=== PATIENT | male | born 1955 | race Caucasian/White ===

== ENCOUNTER → 2018-08-28 17:26 | Outpatient (CLI) | payer MEDICAID, SELFPAY ==
[2018-08-28 18:27] LABS: Amphetamine/Metha Screen,Urine Negative ng/mL (<1000); Barbiturates Screen,Urine Negative ng/mL (<200); Benzodiazepines Screen,Urine Negative ng/mL (<200); Cannabinoid Screen,Urine Negative ng/mL (<50); Cocaine Screen,Urine Negative ng/mL (<300); Methadone Screen,Urine Negative ng/mL (<300); Opiate Screen,Urine Negative ng/mL (<300); Phencyclidine Screen,Urine Negative ng/mL (<25)
== END ==
PROVIDERS: Visit Provider Emergency Medicine
DX: Z79.899 Other long term (current) drug therapy (principal)
CPT/HCPCS: 80305

== ENCOUNTER → 2018-10-02 14:22 | Outpatient (CLI) | payer MEDICAID, SELFPAY ==
[2018-10-02 15:00] LABS: Basophils % 0.6 % (0.1-2.0); Eosinophils # 0.1 K/mm3 (0.0-0.4); Eosinophils % 2.7 % (0.1-12.0); Hematocrit 48.3 % (42.0-52.0); Lymphocytes # 1.4 K/mm3 (0.7-4.5); Lymphocytes % 28.3 % (10-50); Mean Corpuscular HGB Conc 33.2 g/dL (31.8-35.4); Mean Corpuscular Hemoglobin 31.4 pg (27.0-31.2); Mean Corpuscular Volume 94.7 fl (80-94); Mean Platelet Volume 8.4 fl (7.4-10.4); Monocytes # 0.4 K/mm3 (0.1-1.0); Monocytes % 7.2 % (1.7-9.3); Neutrophils # 3.1 K/mm3 (1.8-7.8); Neutrophils % 61.2 % (37.0-80.0); Platelet Count 274 K/mm3 (142-424); Red Cell Distribution Width 13.3 % (11.5-17.5)
[2018-10-02 16:21] LABS: Alanine Aminotransferase 52 U/L (12-78); Albumin Level 3.9 gm/dL (3.4-5.0); Albumin/Globulin Ratio 1.2 (1.1-1.8); Alkaline Phosphatase 89 U/L (46-116); Anion Gap 11.6 mEq/L (5-15); Aspartate Amino Transferase 16 U/L (15-37); Bilirubin,Total 0.4 mg/dL (0.2-1.0); Blood Urea Nitrogen 14 mg/dL (7-18); Calcium 9.7 mg/dL (8.5-10.1); Carbon Dioxide 31 mmol/L (21.0-32.0); Chloride 102 mmol/L (98-107); Chol/HDL Ratio 5.3 (1-3.5); Cholesterol 185 mg/dL (140-200); Estimated Glomerular Filt Rate 68 ml/min (>60); Free T4 (Free Thyroxine) 0.86 ng/dl (0.76-1.46); GFR (African American) 82 ML/MIN (>60); Globulin 3.2 gm/dl (1.3-3.2); Glucose 100 mg/dL (74-106); HDL Cholesterol 35 mg/dL (27-67); LDL Cholesterol 124 mg/dL (0-130); Potassium 4.6 mmoL/L (3.5-5.1); Sodium 140 mmol/L (136-145); Thyroid Stimulating Hormone 1.04 uIU/ml (0.358-3.740); Total Protein,Serum 7.1 gm/dL (6.4-8.2); Triglycerides 128 mg/dL (30-200); VLDL Cholesterol 26 mg/dL (0-40)
== END ==
PROVIDERS: Visit Provider Emergency Medicine
DX: R53.83 Other fatigue (principal); M79.18 Myalgia, other site; M54.16 Radiculopathy, lumbar region; E66.9 Obesity, unspecified; Z72.0 Tobacco use; E55.9 Vitamin D deficiency, unspecified
CPT/HCPCS: 80053; 80061; 82652; 84439; 84443; 85025

== ENCOUNTER → 2019-01-04 14:02 | Outpatient (CLI) | payer MEDICAID, SELFPAY ==
[2019-01-04 15:23] LABS: Amphetamine/Metha Screen,Urine Negative ng/mL (<1000); Barbiturates Screen,Urine Negative ng/mL (<200); Benzodiazepines Screen,Urine Negative ng/mL (<200); Cannabinoid Screen,Urine Negative ng/mL (<50); Cocaine Screen,Urine Negative ng/mL (<300); Methadone Screen,Urine Negative ng/mL (<300); Opiate Screen,Urine Positive ng/mL (<300); Phencyclidine Screen,Urine Negative ng/mL (<25)
== END ==
PROVIDERS: Visit Provider Emergency Medicine
DX: M54.16 Radiculopathy, lumbar region (principal)
CPT/HCPCS: 80305

== ENCOUNTER → 2019-03-04 14:51 | Outpatient (CLI) | payer MEDICAID, SELFPAY ==
[2019-03-04 16:57] LABS: Amphetamine/Metha Screen,Urine Negative ng/mL (<1000); Barbiturates Screen,Urine Negative ng/mL (<200); Benzodiazepines Screen,Urine Negative ng/mL (<200); Cannabinoid Screen,Urine Negative ng/mL (<50); Cocaine Screen,Urine Negative ng/mL (<300); Methadone Screen,Urine Negative ng/mL (<300); Opiate Screen,Urine Positive ng/mL (<300); Phencyclidine Screen,Urine Negative ng/mL (<25)
== END ==
PROVIDERS: Visit Provider Emergency Medicine
DX: M54.16 Radiculopathy, lumbar region (principal)
CPT/HCPCS: 80305

== ENCOUNTER → 2019-04-03 13:45 | Outpatient (CLI) | payer MEDICAID, SELFPAY ==
[2019-04-03 21:15] LABS: Amphetamine/Metha Screen,Urine Negative ng/mL (<1000); Barbiturates Screen,Urine Negative ng/mL (<200); Benzodiazepines Screen,Urine Negative ng/mL (<200); Cannabinoid Screen,Urine Negative ng/mL (<50); Cocaine Screen,Urine Negative ng/mL (<300); Methadone Screen,Urine Negative ng/mL (<300); Opiate Screen,Urine Positive ng/mL (<300); Phencyclidine Screen,Urine Negative ng/mL (<25)
== END ==
PROVIDERS: Visit Provider Emergency Medicine
DX: Z79.899 Other long term (current) drug therapy (principal)
CPT/HCPCS: 80305

== ENCOUNTER → 2019-04-29 11:13 | Outpatient (POV) | payer MEDICAID, SELFPAY ==
[2019-04-29 11:26] VITALS: BP 156/90; PULSE 75; RESP 18; O2SAT 99; BMI 32.0
--- NOTE | 2019-04-29 12:00 | HMH.PMCON ---
Assessment and Plan (1) Back pain Current visit: Yes Status: Chronic Qualifiers: Back pain location: low back pain Category: Medical Code(s): M54.9 - Dorsalgia, unspecified - Assessment and plan all Dx Assessment and Plan for all problems:: Patient and I discussed options I do believe an MRI would be beneficial to help determine the pathology of his pain and the intermittent nature of it. Patient is unsure what he would like to do. Patient is asking for Mesa today. I discussed with him that we would not be giving him any Mesa or any narcotics. We will also try to get the notes from his previous pain management clinic. I will follow-up with him after his MRI reassess him at that time. Dr. Null has reviewed this note and agrees with this plan of care. This note was dictated using voice recognition software and may contain errors or omissions HPI - Data of Consult Consult date: 04/29/19 Requesting Physician: Ya Richardson APRN Primary Care Provider: Sergei Olivarez MD - Consult Narrative Reason for consult: Back pain History of present illness: Mr. Wheatley is a 63 year old male who presents today for consultation in regards to his low back and leg pain. Patient states it is intermittent in nature. Patient states that when it hits he is unable to walk. Patient does not have any updated imaging however he does have an MRI scheduled for tomorrow. He is receiving Mesa and gabapentin from his primary care physician. He states that this is beneficial. Patient has been going to pain clinic in [place] where he received 2 injections in his neck which he states he does not understand why they were given to him in that location. Patient states that he was billed $50,000 per injection. Patient states that his insurance denied those getting paid and was unable to continue to go to that clinic. Patient then states he switched his insurance and was still unable to go to that clinic. Patient rates his pain today a 7 out of 10. 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 Patient states that he is unsure that he is interested in any injective therapy. I discussed with him potentially an epidural would be beneficial however it will help to have an MRI with updated imaging. Patient states he tried physical therapy and chiropractic therapy with no relief. CC: Ya Richardson APRN [facility] History I have reviewed the patient's past medical history: Yes Medical History: Reports:: Gastroesophageal Reflux Disease(GERD) *Have you ever received a pneumonia vaccine?: Yes *Have you received a flu vaccine this season?: Yes Other Medical History: Reports: Arthritis, Other Laterality Cases: Bilateral: Arthroscopy Knee Other Surgeries: Yes: Other Amputation: No Fractures: Yes - *Social History Smoking Status: Current every day smoker Tobacco Type: cigarettes # Packs/Day (cigarettes): 1 Alcohol Intake: never Substance Use Type: denies use *Occupational Status:: other Housing: apartment Household Members: other *Travel in the last 8 weeks: None Family Hx:: Heart Attack, Stroke Review of Systems - Review of Systems ROS General: no recent weight change, no fever, no sleep disturbances Respiratory: no cough, no shortness of air, no recurring pulmonary infections Cardiovascular/Peripheral Vascular: No chest pain, No palpitations, no edema, no shortness of breath. Gastrointestinal: no new onset incontinence, normal bowel movements reported Genitourinary: no new onset incontinence Musculoskeletal: Back pain, leg pain Psychiatric: normal mood/ affect Neurological: [denies new onset weakness in extremities], [denies new onset balance issues] Meds Home Medications Medication Instructions Recorded Confirmed Type cholecalciferol (vitamin D3) 25 1,000 unit PO DAILY #90 cap 10/05/18 04/03/19 Rx mcg (1,000 unit) capsule ergocalciferol (vitamin D2) 1,250 50,000 unit PO QWEEK #14 cap 10/05/18 04/03/19 Rx mcg (50,
== END ==
PROVIDERS: PCP Emergency Medicine; Visit Provider Clinical Nurse Specialist Family Health
DX: M54.9 Dorsalgia, unspecified (principal)
CPT/HCPCS: 99202

== ENCOUNTER 2019-10-03 15:14 | Emergency (ER) | payer MEDICAID, SELFPAY ==
[2019-10-03 15:20] VITALS: BP 127/85; PULSE 87; RESP 18; TEMP 36.9; O2SAT 95; BMI 31.5
[2019-10-03 15:59] VITALS: BP 127/85; PULSE 87; RESP 18; TEMP 36.9; O2SAT 95; BMI 31.4
--- NOTE | 2019-10-03 16:01 | HMH.EDUTC ---
[facility] [place] Disposition Clinical Impression: Low back strain Qualifiers: Encounter type: initial encounter Qualified Code(s): S39.012A - Strain of muscle, fascia and tendon of lower back, initial encounter Disposition: Home, Self-Care Condition on Discharge: Good Instructions: Low Back Pain, DI for Low Back Pain Additional Instructions: Drink plenty of fluids. Take tylenol or ibuprofen for pain or fever. Take the medications as directed. Follow up with your regular doctor. GO TO THE ER FOR ANY WORSENING SYMPTOMS Don't start the oral steroids until tomorrow, since you had the shot here today. The muscle relaxers (robaxin) will make you drowsy, so don't drive or operate heavy machinery after taking them. Go home and rest. It would be best if you rested tomorrow too. No heavy lifting. No twisting. Take the oral medications as directed. The muscle relaxer (robaxin) will make you drowsy, so don't drive or operate heavy machinery after taking it. Don't start the oral steroids (medrol dose pack) until tomorrow, since you had the shots in here today. Follow up with your regular doctor. GO TO THE ER FOR ANY WORSENING SYMPTOMS OR CONCERN, ESPECIALLY BOWEL OR BLADDER ISSUES, SADDLE AREA NUMBNESS, FEVER, ETC Prescriptions: methylPREDNISolone [Medrol] 4 mg PO DIRECTED 6 Days #21 tab.ds.pk Transmission Status: Received by [facility] Methocarbamol [Robaxin 500mg Tab] 500 mg PO BIDP PRN #30 tab PRN Reason: Muscle Spasm Transmission Status: Received by [facility] Referrals: PCP,No [Primary Care Provider] - Time of Disposition: 16:25 Medical Decision Making - Medical Records Medical records reviewed: No: I reviewed the patient's medical records. - Kirt Inquiry Pt receiving controlled substance: No Vital Signs: 10/03/19 15:20 10/03/19 15:59 10/03/19 16:15 Temperature 98.5 F 98.5 F 98.5 F Temperature Source Oral Oral Pulse Rate 87 Pulse Rate [Radial] 87 87 Respiratory Rate 18 18 18 Blood Pressure 127/85 Blood Pressure [Right Arm] 127/85 127/85 Blood Pressure Mean [Right Arm] 99 99 Blood Pressure Source [Right Arm] Automatic Cuff Blood Pressure Position [Right Arm] Sitting 02 Sat by Pulse Oximetry 95 95 Oxygen Delivery Method Room Air Room Air Orders (Tests/Meds): ED MEDICATIONS Discontinued Medications Generic Name Dose Route Start Last Admin Trade Name Kathleen PRN Reason Stop Dose Admin Methylprednisolone Sodium Succinate 125 mg 10/03/19 16:03 10/03/19 16:14 Solu-Medrol 125mg/2ml Vial IM 10/03/19 16:04 125 mg ONCE ONE Administration [facility] [place] HPI - General Stated complaint: Back pain Time Seen by Provider: 10/03/19 16:01 Mode of Arrival: Ambulatory Limitations: No Limitations Description of Symptoms (Recalled from Triage Doc. by RN): Complaint of back pain after lifting some boxes. - History of Present Illness Provider Complaint: He c/o low back pain for the past 4 days after lifting some heavy stuff. - Related Data Previous Rx's Medication Instructions Recorded cholecalciferol (vitamin D3) 25 1,000 unit PO DAILY #90 cap 10/05/18 mcg (1,000 unit) capsule ergocalciferol (vitamin D2) 1,250 50,000 unit PO QWEEK #14 cap 10/05/18 mcg (50,000 unit) capsule omeprazole 40 mg capsule,delayed 40 mg PO DAILY #90 cap 01/04/19 release gabapentin 800 mg tablet 800 mg PO TID #90 tab 04/04/19 loratadine 10 mg tablet 10 mg PO DAILY #90 tab 04/04/19 tizanidine 4 mg capsule 4 mg PO TID #270 cap 04/04/19 hydrocodone 5 mg-acetaminophen 325 1 tab PO BID PRN #60 tab 04/08/19 mg tablet Methocarbamol [Robaxin 500mg Tab] 500 mg PO BIDP PRN #30 tab 10/03/19 methylPREDNISolone [Medrol] 4 mg PO DIRECTED 6 Days #21 10/03/19 tab.ds.pk Allergies Allergy/AdvReac Type Severity Reaction Status Date / Time acyclovir Allergy Severe Swelling Verified 04/03/19 09:35 of the Eye ketorolac [From Toradol] Allergy Severe Anaphylaxi
[2019-10-03 16:15] VITALS: BP 127/85; PULSE 87; RESP 18; TEMP 36.9; O2SAT 95
== END 2019-10-03 16:39 | disposition home or self-care (01) ==
PROVIDERS: Emergency Provider Nurse Practitioner Family
DX: S39.012A Strain of muscle, fascia and tendon of lower back, initial encounter (principal); X50.0XXA Overexertion from strenuous movement or load, initial encounter; Y92.019 Unspecified place in single-family (private) house as the place of occurrence of the external cause; K21.9 Gastro-esophageal reflux disease without esophagitis; F17.210 Nicotine dependence, cigarettes, uncomplicated
CPT/HCPCS: 96372; 99201

== ENCOUNTER → 2022-11-16 01:10 | Outpatient (CLI) | payer MEDICARE, MEDICAID, SELFPAY ==
[2022-11-16 19:27] LABS: Basophils % 0.1 % (0.1-2.0); Eosinophils % 0.1 % (0.1-12.0); Hematocrit 53.5 % (42.0-52.0); Lymphocytes # 0.5 K/mm3 (0.7-4.5); Lymphocytes % 4.6 % (10-50); Mean Corpuscular HGB Conc 31.7 g/dL (31.8-35.4); Mean Corpuscular Hemoglobin 30.4 pg (27.0-31.2); Mean Corpuscular Volume 95.9 fl (80-94); Mean Platelet Volume 10.9 fl (7.4-10.4); Monocytes # 0.4 K/mm3 (0.1-1.0); Monocytes % 3.5 % (1.7-9.3); Neutrophils # 10.2 K/mm3 (1.8-7.8); Neutrophils % 91.7 % (37.0-80.0); Platelet Count 230 K/mm3 (142-424); Red Blood Count 5.58 M/mm3 (4.60-6.20); Red Cell Distribution Width 13.6 % (11.5-17.5); White Blood Count 11.1 K/mm3 (4.8-10.8)
[2022-11-16 19:30] LABS: MANUAL DIFFERENTIAL MANUAL DIFFERENTIAL (MANUAL DIFF)
[2022-11-16 20:46] LABS: Alanine Aminotransferase 38 U/L (12-78); Albumin Level 4.5 g/dl (3.5-5.0); Albumin/Globulin Ratio 1.5 (1.1-1.8); Alkaline Phosphatase 66 U/L (38-126); Anion Gap 16.7 mEq/L (5-15); Aspartate Amino Transferase 28 U/L (17-59); Bilirubin,Total 0.9 mg/dl (0.2-1.3); Blood Urea Nitrogen 17 mg/dl (9-20); Calcium 9.8 mg/dl (8.4-10.2); Carbon Dioxide 21 mmol/L (22.0-30.0); Chloride 105 mmol/L (98-107); Estimated Glomerular Filt Rate 75 ml/min (>60); GFR (African American) 90 ML/MIN (>60); Glucose 165 mg/dl (74-100); Potassium 4.7 mmoL/L (3.5-5.1); Sodium 138 mmol/L (136-145); Total Protein,Serum 7.5 g/dl (6.3-8.2)
[2022-11-16 21:02] LABS: Lymphocytes % 6 % (10-50); Neutrophils % 94 % (42-76); Total Cells Counted 100
[2022-11-16 21:03] LABS: Platelet Estimate Normal; RBC Morphology Normal
[2022-11-16 21:14] LABS: Amphetamine/Metha Screen,Urine Negative ng/ml (<1000)
[2022-11-16 21:15] LABS: Barbiturates Screen,Urine Negative ng/ml (<200)
[2022-11-16 21:16] LABS: Benzodiazepines Screen,Urine Negative ng/ml (<200); Cannabinoid Screen,Urine Negative ng/ml (<50); Prostate Specific Ag Screen 2.2 ng/ml (0.0-4.0)
[2022-11-16 21:19] LABS: Cocaine Screen,Urine Negative ng/ml (<300); Methadone Screen,Urine Negative ng/ml (<300)
[2022-11-16 21:20] LABS: Opiate Screen,Urine Negative ng/ml (<300)
[2022-11-16 21:21] LABS: Phencyclidine Screen,Urine Negative ng/ml (<25)
== END ==
PROVIDERS: PCP Internal Medicine; Visit Provider Internal Medicine
DX: Z00.00 Encounter for general adult medical examination without abnormal findings (principal); Z79.899 Other long term (current) drug therapy; Z12.5 Encounter for screening for malignant neoplasm of prostate
CPT/HCPCS: 80053; 80305; 85007; 85025; G0103

== ENCOUNTER → 2022-12-15 14:04 | Outpatient (CLI) | payer MEDICARE, MEDICAID, SELFPAY ==
[2022-12-15 18:39] LABS: Cholesterol 203 mg/dl (140-200); HDL Cholesterol 34 mg/dl (40-60); Triglycerides 165 mg/dl (30-150); VLDL Cholesterol 33 mg/dL (0-40)
[2022-12-15 18:48] LABS: Amphetamine/Metha Screen,Urine Negative ng/ml (<1000)
[2022-12-15 18:49] LABS: Barbiturates Screen,Urine Negative ng/ml (<200); Benzodiazepines Screen,Urine Negative ng/ml (<200)
[2022-12-15 18:50] LABS: Cannabinoid Screen,Urine Negative ng/ml (<50); Direct LDL Cholesterol 137.05 mg/dL (100-129)
[2022-12-15 18:55] LABS: Methadone Screen,Urine Negative ng/ml (<300)
[2022-12-15 18:56] LABS: Cocaine Screen,Urine Negative ng/ml (<300)
[2022-12-15 18:57] LABS: Opiate Screen,Urine Positive ng/ml (<300); Phencyclidine Screen,Urine Negative ng/ml (<25)
[2022-12-15 19:02] LABS: Hemoglobin A1C 5.6 % (4.0-6.0)
== END ==
PROVIDERS: PCP Internal Medicine; Visit Provider Internal Medicine
DX: E66.9 Obesity, unspecified (principal); R73.9 Hyperglycemia, unspecified; Z79.899 Other long term (current) drug therapy; Z68.30 Body mass index [BMI] 30.0-30.9, adult
CPT/HCPCS: 80061; 80305; 83036

== ENCOUNTER → 2022-12-15 14:04 | Outpatient (CLI) | payer MEDICARE, MEDICAID, SELFPAY | PROVIDERS: PCP Internal Medicine; Visit Provider Internal Medicine | DX: Z79.899 Other long term (current) drug therapy (principal) ==

== ENCOUNTER → 2023-01-16 08:39 | Outpatient (CLI) | payer MEDICARE, MEDICAID, SELFPAY ==
[2023-01-16 19:44] LABS: Amphetamine/Metha Screen,Urine Negative ng/ml (<1000)
[2023-01-16 19:45] LABS: Barbiturates Screen,Urine Negative ng/ml (<200)
[2023-01-16 19:46] LABS: Benzodiazepines Screen,Urine Negative ng/ml (<200)
[2023-01-16 19:47] LABS: Cannabinoid Screen,Urine Negative ng/ml (<50); Cocaine Screen,Urine Negative ng/ml (<300)
[2023-01-16 19:48] LABS: Methadone Screen,Urine Negative ng/ml (<300)
[2023-01-16 19:49] LABS: Opiate Screen,Urine Positive ng/ml (<300)
[2023-01-16 19:50] LABS: Phencyclidine Screen,Urine Negative ng/ml (<25)
== END ==
PROVIDERS: PCP Internal Medicine; Visit Provider Internal Medicine
DX: M54.16 Radiculopathy, lumbar region (principal); Z79.899 Other long term (current) drug therapy
CPT/HCPCS: 80305

== ENCOUNTER → 2023-02-15 23:17 | Outpatient (CLI) | payer MEDICARE, MEDICAID, SELFPAY ==
[2023-02-15 20:03] LABS: Benzodiazepines Screen,Urine Negative ng/ml (<200)
[2023-02-15 20:04] LABS: Barbiturates Screen,Urine Negative ng/ml (<200)
[2023-02-15 20:05] LABS: Cannabinoid Screen,Urine Negative ng/ml (<50); Methadone Screen,Urine Negative ng/ml (<300)
[2023-02-15 20:06] LABS: Cocaine Screen,Urine Negative ng/ml (<300)
[2023-02-15 20:08] LABS: Phencyclidine Screen,Urine Negative ng/ml (<25)
[2023-02-15 20:19] LABS: Chol/HDL Ratio 5.9 (1-3.5); Cholesterol 165 mg/dl (140-200); HDL Cholesterol 28 mg/dl (40-60); Triglycerides 135 mg/dl (30-150); VLDL Cholesterol 27 mg/dL (0-40)
[2023-02-15 20:19] LABS: Amphetamine/Metha Screen,Urine Negative ng/ml (<1000)
[2023-02-15 20:23] LABS: Opiate Screen,Urine Positive ng/ml (<300)
[2023-02-15 20:30] LABS: Direct LDL Cholesterol 112.18 mg/dL (100-129)
== END ==
PROVIDERS: PCP Internal Medicine; Visit Provider Internal Medicine
DX: Z79.899 Other long term (current) drug therapy (principal); E66.9 Obesity, unspecified; Z68.30 Body mass index [BMI] 30.0-30.9, adult
CPT/HCPCS: 80061; 80305

== ENCOUNTER 2023-04-06 11:33 | Outpatient (CLI) | payer MEDICARE, MEDICAID, SELFPAY ==
[2023-04-06 11:55] LABS: Basophils % 0.4 % (0.1-2.0); Eosinophils # 0.3 K/mm3 (0.0-0.4); Eosinophils % 4.5 % (0.1-12.0); Hematocrit 48.3 % (42.0-52.0); Hemoglobin 15.9 g/dL (14.1-18.0); Lymphocytes # 1.9 K/mm3 (0.7-4.5); Lymphocytes % 32.6 % (10-50); Mean Corpuscular HGB Conc 32.9 g/dL (31.8-35.4); Mean Platelet Volume 9.1 fl (7.4-10.4); Monocytes # 0.4 K/mm3 (0.1-1.0); Monocytes % 6.5 % (1.7-9.3); Neutrophils # 3.3 K/mm3 (1.8-7.8); Platelet Count 201 K/mm3 (142-424); Red Blood Count 5.14 M/mm3 (4.60-6.20); Red Cell Distribution Width 13.3 % (11.5-17.5); White Blood Count 5.8 K/mm3 (4.8-10.8)
[2023-04-06 12:49] LABS: 25-OH Vitamin D, Total 19.3 ng/mL (30-100)
[2023-04-06 15:22] LABS: Hemoglobin A1C 5.8 % (4.0-6.0)
== END 2023-04-06 23:59 ==
LOC: LAB.DROPOF 11:33
PROVIDERS: PCP Internal Medicine; Visit Provider Internal Medicine
DX: E55.9 Vitamin D deficiency, unspecified (principal); E11.9 Type 2 diabetes mellitus without complications; Z68.30 Body mass index [BMI] 30.0-30.9, adult; Z79.85 Long-term (current) use of injectable non-insulin antidiabetic drugs
CPT/HCPCS: 82306; 83036; 85025

== ENCOUNTER 2023-09-28 18:02 | Outpatient (CLI) | payer MEDICARE, MEDICAID, SELFPAY ==
[2023-09-28 18:23] LABS: Basophils % 0.6 % (0.1-2.0); Eosinophils # 0.2 K/mm3 (0.0-0.4); Eosinophils % 2.5 % (0.1-12.0); Hematocrit 48.9 % (42.0-52.0); Lymphocytes # 1.6 K/mm3 (0.7-4.5); Lymphocytes % 26.4 % (10-50); Mean Corpuscular HGB Conc 32.7 g/dL (31.8-35.4); Mean Corpuscular Hemoglobin 31.4 pg (27.0-31.2); Mean Corpuscular Volume 95.9 fl (80-94); Mean Platelet Volume 10.7 fl (7.4-10.4); Monocytes # 0.4 K/mm3 (0.1-1.0); Monocytes % 5.8 % (1.7-9.3); Neutrophils % 64.7 % (37.0-80.0); Platelet Count 207 K/mm3 (142-424); Red Cell Distribution Width 13.9 % (11.5-17.5); White Blood Count 6.1 K/mm3 (4.8-10.8)
[2023-09-28 18:46] LABS: Alanine Aminotransferase 46 U/L (12-78); Albumin Level 3.9 g/dl (3.5-5.0); Albumin/Globulin Ratio 1.3 (1.1-1.8); Alkaline Phosphatase 66 U/L (38-126); Anion Gap 13.2 mEq/L (5-15); Aspartate Amino Transferase 33 U/L (17-59); Bilirubin,Total 1.1 mg/dl (0.2-1.3); Blood Urea Nitrogen 16 mg/dl (9-20); Calcium 9.6 mg/dl (8.4-10.2); Carbon Dioxide 24 mmol/L (22.0-30.0); Chloride 108 mmol/L (98-107); Chol/HDL Ratio 5.5 (1-3.5); Cholesterol 188 mg/dl (140-200); Estimated Glomerular Filt Rate 84 ml/min (>60); GFR (African American) 102 ML/MIN (>60); Globulin 2.9 g/dL (1.3-3.2); Glucose 98 mg/dl (74-100); HDL Cholesterol 34 mg/dl (40-60); Potassium 4.2 mmoL/L (3.5-5.1); Sodium 141 mmol/L (136-145); Total Protein,Serum 6.8 g/dl (6.3-8.2); Triglycerides 128 mg/dl (30-150); VLDL Cholesterol 26 mg/dL (0-40)
[2023-09-28 18:56] LABS: Direct LDL Cholesterol 128.88 mg/dL (100-129)
[2023-09-28 19:06] LABS: 25-OH Vitamin D, Total 38.5 ng/mL (30-100)
[2023-09-28 21:18] LABS: Microalbumin/Creatinine Ratio 6.3
[2023-09-28 21:24] LABS: Creatinine,Urine Random 321 mg/dL (Not Estab.)
== END 2023-09-28 23:59 | disposition home or self-care (01) ==
LOC: LAB.DROPOF 18:03
PROVIDERS: PCP Internal Medicine; Visit Provider Internal Medicine
DX: E78.5 Hyperlipidemia, unspecified; E55.9 Vitamin D deficiency, unspecified
CPT/HCPCS: 80053; 80061; 82043; 82306; 82570; 85025

== ENCOUNTER 2023-12-27 12:21 | Outpatient (CLI) | payer MEDICARE, MEDICAID, SELFPAY ==
[2023-12-27 19:18] LABS: Microalbumin/Creatinine Ratio 5.3
[2023-12-27 19:29] LABS: Creatinine,Urine Random 126 mg/dL (Not Estab.)
== END 2023-12-27 23:59 | disposition home or self-care (01) ==
LOC: LAB.DROPOF 12-28 12:21
PROVIDERS: PCP Internal Medicine; Visit Provider Internal Medicine
DX: R73.03 Prediabetes (principal)
CPT/HCPCS: 82043; 82570

== ENCOUNTER 2024-03-25 13:45 | Outpatient (CLI) | payer MEDICARE, MEDICAID, SELFPAY ==
[2024-03-25 20:15] LABS: Prostate Specific Ag Screen 2.7 ng/ml (0.0-4.0)
== END 2024-03-25 23:59 | disposition home or self-care (01) ==
LOC: LAB.DROPOF 03-26 10:59
PROVIDERS: PCP Internal Medicine; Visit Provider Internal Medicine
DX: Z12.5 Encounter for screening for malignant neoplasm of prostate (principal)
CPT/HCPCS: G0103

== ENCOUNTER 2024-04-25 14:30 | Outpatient (CLI) | payer MEDICARE, MEDICAID, SELFPAY | END 2024-04-25 23:59 | disposition home or self-care (01) | LOC: LAB.DROPOF 04-26 13:21 | PROVIDERS: PCP Nurse Practitioner; Visit Provider Nurse Practitioner | DX: B35.1 Tinea unguium (principal); B35.3 Tinea pedis | CPT/HCPCS: 87102; 87206; 87220 ==

== ENCOUNTER 2024-04-26 12:18 | Outpatient (CLI) | payer MEDICARE, MEDICAID, SELFPAY ==
--- NOTE | 2024-04-26 12:27 | CA_ITS ---
APPROVED REPORT EXAM: Comprehensive 2D, Doppler, and color-flow Echocardiogram Storage Manager: Kimberlyn Wilde CRT Ht: 5 ft 10 in Wt: 212lbs BSA: 2.14 BP: 159/89 mmHg Indications: Fatigue, Recent of partner04/23 2D Dimensions Left Atrium 3.04 cm LVEF ([facility]'s) 56.10 % LVOT 2.08 cm (M/F) 1.5-2.5 LV Volume 92.00 mL LV Volume Index 42.767512 mL/m2 M: 34 - 74 LA Volume 19.10 mL LA Volume Index 8.721401 mL/m2 (M/F) 16-34 EF AP4 55.50 % EF AP2 55.9 % EF BP 56.1 % GL Strain -13.8 % M-Mode Dimensions RVDd 2.35 cm (0.9-2.6) LVDd 4.36 cm (3.5-5.7) Ao Diam 4.30 cm (2.0-3.7) LVDs 1.82 cm (3.5-5.7) IVSd 1.33 cm (0.6-1.1) PWd 1.14 cm (0.6-1.1) EF (Teich) 88.30% FS 58.30% EDV (Teich) 85.80 mL TAPSE 1.53 (<1.7) ESV (Teich) 10.00 mL LV Diastology E Decel Time 281 (160-240 msec) E/A Ratio 0.46 MED E' 5.2 (>= 7 cm/sec) MED A' 9.20 cm/s E'/MED E' Ratio 9.35 (<= 14) LAT E' 7.9 (>= 10 cm/sec) LAT A' 10.20 cm/s E/LAT E' Ratio 6.15 (<= 14) Aortic Valve AoV Peak Alcon. 127.0 (50-130 cm/s) AO Peak GR. 6.50 mmHg Mitral Valve MV E Max Alcon. 49.0 (40-130 cm/s) MV A Velocity 106.0 (40-130 cm/s) E/A Ratio 0.46 MV Decel. Time 281 (160-240 ms) Tricuspid Valve TR P. Velocity 250.00 cm/s RAP Estimate 10.00 mmHg RVSP 35.00 mmHg Left Ventricle The left ventricle is normal size. The left ventricular systolic function is normal. The left ventricular ejection fraction is within the normal range. There is increased LV wall thickness. There is normal LV segmental wall motion. The left ventricular diastolic function is normal. LVEF is 60%. Right Ventricle The right ventricle is normal size. The right ventricular systolic function is normal. Atria The left atrium size is normal. The right atrium size is normal. There is no Doppler evidence of interatrial shunt. Aortic Valve The aortic valve is mildly thickened. There is no aortic valvular stenosis. No aortic regurgitation is present. Mitral Valve The mitral valve is normal in structure. No evidence of mitral valve stenosis. There is no mitral valve regurgitation noted. Tricuspid Valve Tricuspid valve is grossly normal in structure and function. Trace tricuspid regurgitation. There is insufficient TR jet to estimate RVSP. Pulmonic Valve The pulmonary valve is normal in structure. Trace pulmonic regurgitation. Great Vessels The aortic root is normal in size. IVC is normal in size and collapses >50% with inspiration. Pericardium There is no pericardial effusion. Other Information Study Quality: Fair Conclusion Normal biventricular systolic function. No significant valvular stenosis or regurgitation. Electronically signed by : Zoraida Davalos MD 05/07/2024 09:47:46
== END 2024-04-26 23:59 | disposition home or self-care (01) ==
LOC: RT 12:19
PROVIDERS: PCP Internal Medicine; Visit Provider Nurse Practitioner Family
DX: R53.83 Other fatigue (principal); R09.89 Other specified symptoms and signs involving the circulatory and respiratory systems; Z91.89 Other specified personal risk factors, not elsewhere classified; E78.2 Mixed hyperlipidemia; R61 Generalized hyperhidrosis; Z13.6 Encounter for screening for cardiovascular disorders
CPT/HCPCS: 93306

== ENCOUNTER 2024-06-27 13:15 | Outpatient (CLI) | payer MEDICARE, OTHER, SELFPAY ==
--- NOTE | 2024-06-27 13:20 | XR_ITS ---
FINAL REPORT CLINICAL HISTORY: Rt Shoulder Pain COMPARISON: None FINDINGS: RIGHT SHOULDER 2 views demonstrate no acute fracture or dislocation. There are mild hypertrophic changes of the acromioclavicular joint. The soft tissues are unremarkable. IMPRESSION: Degenerative changes without acute bony abnormality. Reviewed, Interpreted and Dictated by Todd Echols MD Transcribed by Mariza Marcus Authenticated and [facility]
== END 2024-06-27 23:59 | disposition home or self-care (01) ==
LOC: RAD 13:17
PROVIDERS: PCP Family Medicine; Visit Provider Physician Assistant
DX: M25.511 Pain in right shoulder (principal)
CPT/HCPCS: 73030

== ENCOUNTER 2024-07-15 12:42 | Outpatient (CLI) | payer MEDICARE, OTHER, SELFPAY ==
--- NOTE | 2024-07-15 13:00 | MR_ITS ---
FINAL REPORT CLINICAL HISTORY: Rt Shoulder Pain COMPARISON: None FINDINGS: Multi planar MR imaging of the right shoulder was performed. The supraspinatus tendon is completely torn, with complete retraction of the supraspinatus tendon of 3.5 cm. There is heterogeneous thickening of the subscapularis tendon consistent with tendinosis, and a probable partial tear of the distal subscapularis tendon. There is moderate fluid present in the subacromial/subdeltoid bursa. The anterior and posterior glenoid kay appear intact. The biceps tendon appears intact. The acromioclavicular joint appears intact. IMPRESSION: Complete tear of the supraspinatus tendon, with retraction as described above. Heterogeneous thickening of the subscapularis tendon consistent with tendinosis and a probable partial tear of the distal tendon. Moderate fluid is present in the subacromial/subdeltoid bursa. Reviewed, Interpreted and Dictated by Todd Echols MD Transcribed by Sadia Mckeon Authenticated and [facility]
== END 2024-07-15 23:59 | disposition home or self-care (01) ==
LOC: RAD 12:43
PROVIDERS: PCP Family Medicine; Visit Provider Physician Assistant
DX: M75.121 Complete rotator cuff tear or rupture of right shoulder, not specified as traumatic (principal); M77.8 Other enthesopathies, not elsewhere classified; M25.411 Effusion, right shoulder
CPT/HCPCS: 73221

== ENCOUNTER 2024-11-26 11:16 | Outpatient (CLI) | payer MEDICARE, OTHER, SELFPAY ==
[2024-11-26 15:09] LABS: Hematocrit 46.8 % (42.0-52.0); Hemoglobin 15.5 g/dL (14.1-18.0); Immature Granulocytes % 0.4 %; Mean Corpuscular HGB Conc 33.1 g/dL (31.8-35.4); Mean Corpuscular Hemoglobin 31.3 pg (27.0-31.2); Mean Corpuscular Volume 94.4 fl (80-94); Nucleated Red Blood Cells % 0 %; Platelet Count 209 K/mm3 (142-424); Red Blood Count 4.96 M/mm3 (4.60-6.20); Red Cell Distribution Width-SD 45.8 fL; White Blood Count 5.6 K/mm3 (4.8-10.8)
[2024-11-26 15:39] LABS: Alanine Aminotransferase 59 U/L (12-78); Albumin Level 4.1 g/dl (3.5-5.0); Albumin/Globulin Ratio 1.6 (1.1-1.8); Alkaline Phosphatase 100 U/L (38-126); Anion Gap 14.4 mEq/L (5-15); Aspartate Amino Transferase 40 U/L (17-59); Bilirubin,Total 0.7 mg/dl (0.2-1.3); Blood Urea Nitrogen 13 mg/dl (9-20); Calcium 9.7 mg/dl (8.4-10.2); Carbon Dioxide 26 mmol/L (22.0-30.0); Chloride 104 mmol/L (98-107); Cholesterol 208 mg/dl (140-200); Creatinine,Serum 0.80 mg/dl (0.66-1.25); Estimated Glomerular Filt Rate 96 ml/min (>60); GFR (African American) 116 ML/MIN (>60); Globulin 2.5 g/dL (1.3-3.2); Glucose 101 mg/dl (74-100); HDL Cholesterol 37 mg/dl (40-60); Potassium 4.4 mmoL/L (3.5-5.1); Sodium 140 mmol/L (136-145); Total Protein,Serum 6.6 g/dl (6.3-8.2); Triglycerides 152 mg/dl (30-150)
[2024-11-26 15:53] LABS: 25-OH Vitamin D, Total 25.6 ng/mL (30-100)
[2024-11-26 16:09] LABS: Thyroid Stimulating Hormone 1.02 uIU/mL (0.465-4.68)
[2024-11-26 16:13] LABS: Hemoglobin A1C 6.0 % (4.0-6.0)
--- OUTSIDE RECORDS SUMMARY | 2024-11-27 12:20 | XMS_ITS | Clinical Summary ---
Author Organization [facility] SILVERIO Saucedo T Address [address] [place] [address] Phone Care Team Providers Care Print Shop Chief Clerk Name Role Phone LauraJosh allen Chato FAJARDO Primary Care Provider [phone] Allergies Active Allergy Reactions Criticality Noted Date Comments Ketorolac Tromethamine Hives 09/07/2016 Medications gabapentin (NEURONTIN) 600 mg Oral Tablet Take 600 mg by mouth 3 times daily. Active tiZANidine (ZANAFLEX) 2 mg Oral Tablet Take 2 mg by mouth every 6 hours as needed. 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 follow package directions 21 Tab 7 Active Social History Tobacco Use Types Packs/Day Years Used Date Smoking Tobacco: Every Day Sex and Gender Information Value Date Recorded Sex Assigned at Not on file Legal Sex Male 1:18 PM EDT Gender Identity Not on file Sexual Orientation Not on file Last Filed Vital Signs Vital Sign Reading Time Taken Comments Blood Pressure 128/98 09/07/2016 1:09 PM EDT Pulse 99 09/07/2016 1:09 PM EDT Temperature 37 C (98.6 F) 09/07/2016 1:09 PM EDT Respiratory Rate 18 09/07/2016 1:09 PM EDT Oxygen Saturation 96% 09/07/2016 1:09 PM EDT Inhaled Oxygen Concentration - - Weight 99.5 kg (219 lb 6.4 oz) 09/07/2016 1:09 P M EDT Height 180.3 cm (5' 11 ) 09/07/2016 1:09 PM EDT Body Mass Index 30.6 09/07/2016 1:09 PM EDT Plan of Treatment Health Maintenance Due Date Last Done Comments Annual Wellness Exam 07/10/1958 Hepatitis C Screening 1974 DTaP/TDaP/Td (1 - Tdap) 07/10/1975 Cologuard 2001 Colon Cancer Screening 2001 Colonoscopy 2001 FIT 2001 Sigmoidoscopy 2001 Virtual Colonography 2001 Pneumococcal Vaccine 50+ (1 of 1 - PCV) 2006 Zoster (1 of 2) 2006 COVID-19 Vaccine (1 - 2023-2 5 season) 2024 Influenza Vaccine (#1) 2024 Hepatitis B Vaccine Aged Out No longe r eligible based on patient's age to complete this topic Meningococcal B Vaccine Aged Out No l onger eligible based on patient's age to complete this topic Insurance [employer] [place] [id number] [place] [id number] MDR [facility] [id number] MDR [place] [id number] Care Teams Print Shop Chief Clerk Relationship Specialty Start Date End Date Josh Rai DO PCP - General Family Medicine 09/07/16
== END 2024-11-26 23:59 | disposition home or self-care (01) ==
LOC: LAB.DROPOF 11-27 11:06
PROVIDERS: PCP Family Medicine; Visit Provider Family Medicine
DX: E55.9 Vitamin D deficiency, unspecified (principal); R73.03 Prediabetes; E78.5 Hyperlipidemia, unspecified
CPT/HCPCS: 80053; 80061; 82306; 83036; 84443; 85025